=== PATIENT | female | born 1935 | race Caucasian/White ===

== ENCOUNTER → 2016-11-02 | Outpatient (CLI) | payer MEDICARE | END | disposition home or self-care (01) | LOC: CFH 12:19 | PROVIDERS: ATTEND Internal Medicine | DX: E04.2 Nontoxic multinodular goiter (principal); E05.00 Thyrotoxicosis with diffuse goiter without thyrotoxic crisis or storm; I12.9 Hypertensive chronic kidney disease with stage 1 through stage 4 chronic kidney disease, or unspecified chronic kidney disease; N18.9 Chronic kidney disease, unspecified; E78.1 Pure hyperglyceridemia; J45.909 Unspecified asthma, uncomplicated; I48.2 Chronic atrial fibrillation; M19.90 Unspecified osteoarthritis, unspecified site | CPT/HCPCS: 76536 ==

== ENCOUNTER → 2017-12-16 | Outpatient (CLI) | payer MEDICARE | END | disposition home or self-care (01) | LOC: CFH 12:05 | PROVIDERS: ATTEND Internal Medicine Cardiovascular Disease | DX: E04.2 Nontoxic multinodular goiter (principal); R91.1 Solitary pulmonary nodule; J45.909 Unspecified asthma, uncomplicated; I48.2 Chronic atrial fibrillation; I12.9 Hypertensive chronic kidney disease with stage 1 through stage 4 chronic kidney disease, or unspecified chronic kidney disease; N18.9 Chronic kidney disease, unspecified; E05.00 Thyrotoxicosis with diffuse goiter without thyrotoxic crisis or storm | CPT/HCPCS: 71250; 76536 ==

== ENCOUNTER → 2018-02-02 | Outpatient (CLI) | payer MEDICARE | END | disposition home or self-care (01) | LOC: PETCFH 07:54 | PROVIDERS: ATTEND Internal Medicine Cardiovascular Disease | DX: R91.8 Other nonspecific abnormal finding of lung field (principal); I25.10 Atherosclerotic heart disease of native coronary artery without angina pectoris; K44.9 Diaphragmatic hernia without obstruction or gangrene | CPT/HCPCS: 78815; A9552 ==

== ENCOUNTER 2018-05-11 05:36 | Day surgery (SDC) | payer MEDICARE ==
[~2018-05-11] VITALS: Ht 162.6 cm; Wt 79.0 kg
[2018-05-11] MEDS ORDERED: ASPI325T17 PO (06:56)
[2018-05-11] MEDS ORDERED: LOSA50TA7 PO (06:56)
[2018-05-11] MEDS ORDERED: ROSU10TA PO (06:56)
[2018-05-11] MEDS ORDERED: HYDR-3240 PO (06:56)
[2018-05-11] MEDS ORDERED: METO50TA82 PO (06:56)
[2018-05-11 06:57] VITALS: BP 187/88
[2018-05-11] MEDS ORDERED: SODIUM CHLORIDE 0.9% 1,000 ML IV SCH (07:00)
[2018-05-11] MEDS ORDERED: LIDOCAINE-MPF 1%, 5ML ONE ×2 (07:49)
[2018-05-11] MEDS ORDERED: FENTANYL PF 100 MCG/2ML ONE ×2 (07:55)
[2018-05-11] MEDS ORDERED: MIDAZOLAM 1 MG/ML, 5ML ONE (07:56)
[2018-05-11] MEDS ORDERED: NALOXONE 1 MG/ML, 2ML ONE (07:56)
[2018-05-11] MEDS ORDERED: FLUMAZENIL 0.1 MG/1 ML, 5ML ONE (07:56)
== END 2018-05-11 12:00 | disposition home or self-care (01) ==
LOC: OUT 05:36
PROVIDERS: ATTEND Internal Medicine
DX: J18.8 Other pneumonia, unspecified organism (principal); I25.10 Atherosclerotic heart disease of native coronary artery without angina pectoris; I48.2 Chronic atrial fibrillation; I12.9 Hypertensive chronic kidney disease with stage 1 through stage 4 chronic kidney disease, or unspecified chronic kidney disease; N18.9 Chronic kidney disease, unspecified; J45.909 Unspecified asthma, uncomplicated; R06.02 Shortness of breath; Z79.899 Other long term (current) drug therapy; Z79.82 Long term (current) use of aspirin
CPT/HCPCS: 32405; 71045; 77012; 88305; 99156; 99157; C2613; J2250; J3010; J7030; J2310

== ENCOUNTER → 2020-01-11 | Outpatient (CLI) | payer MEDICARE ==
[~2020-01-11] MED LIST: ASPI325T17 PO; HYDR-3240 PO; LOSA50TA14 PO; METO50TA82 PO; ROSU10TA2 PO
== END | disposition home or self-care (01) ==
LOC: CFH 13:34
PROVIDERS: ATTEND Internal Medicine Cardiovascular Disease
DX: I08.3 Combined rheumatic disorders of mitral, aortic and tricuspid valves (principal); I48.0 Paroxysmal atrial fibrillation; E78.2 Mixed hyperlipidemia; R60.9 Edema, unspecified; I10 Essential (primary) hypertension; R06.02 Shortness of breath
CPT/HCPCS: 71046; 93306

== ENCOUNTER → 2020-06-05 | Outpatient (CLI) | payer MEDICARE | END | disposition home or self-care (01) | LOC: CFH 12:28 | PROVIDERS: ATTEND Internal Medicine | DX: R91.8 Other nonspecific abnormal finding of lung field (principal); J84.10 Pulmonary fibrosis, unspecified; J98.4 Other disorders of lung; R91.1 Solitary pulmonary nodule; M85.88 Other specified disorders of bone density and structure, other site; M51.35 Other intervertebral disc degeneration, thoracolumbar region; I25.10 Atherosclerotic heart disease of native coronary artery without angina pectoris | CPT/HCPCS: 71250 ==